=== PATIENT | male | born 1995 | race Caucasian/White ===

== ENCOUNTER 2022-07-28 22:59 | Emergency (ER) | payer OTHER, SELFPAY ==
[2022-07-28 23:02] VITALS: BP 164/100; PULSE 91; RESP 16; TEMP 36.1; O2SAT 100; BMI 29.2
--- NOTE | 2022-07-28 23:48 | ED.WOUNDLAC ---
HPI - Wound/Laceration General Chief Complaint: Laceration/Wound Stated Complaint: Right Pinky Laceration Time Seen by Provider: 07/28/22 23:03 History of Present Illness HPI narrative: 26-year-old young man presenting to the emergency department accompanied by significant other with concern of a laceration to his right 5th finger. Caught on a broken pt glass that had come out of the sanitary wash at a [employer] where he works. Washed intensely right away. Covered up in paper towels. Controlled bleeding. Is having pain but not complaining of tremendous discomfort. Related Data Home Medications Medication Instructions Recorded Confirmed No Known Home Medications 07/28/22 07/28/22 Allergies Allergy/AdvReac Type Severity Reaction Status Date / Time No Known Drug Allergies Allergy Verified 07/28/22 23:06 [facility] Social History Smoking Status: Never smoker How often do you have a drink containing alcohol: 4 or more times a week How many standard drinks containing alcohol do you have on a typical day: 1 or 2 How often do you have six or more drinks on one occasion: Less than monthly AUDIT-C Alcohol total score: 5 Non-prescribed substance use: denies use Exam Narrative: Exam Narrative: Pleasant. Carefully casually groomed. Very polite Does not appear to be in distress. Favoring right hand around which he has wrapped white paper towels around the right 5th finger. Removing these reveals a flap laceration on the palmar surface distally where apex distal total 1.5 cm. Looks to have controlled the bleeding. There does not appear to be glass in this area/the wound. Further evaluation looks to be demonstrating pretty good adherence already. Const: Vital Signs, click to edit/add: Vital Signs - 24 hr 07/28/22 23:02 Temperature 97.0 F L Pulse Rate [Left P ulse Oximeter] 91 Respiratory Rate 16 Blood Pressure [Ri ght Upper Arm] 164/100 H Pulse Oximetry 100 Oxygen Delivery Me thod Room Air Documenting provider has reviewed patient's vital signs: yes Course Vital Signs Vital signs: Initial Vital Signs Temperature 97.0 F L 07/28/22 23:02 Temperature Source Temporal Artery Scan 07/28/22 23:02 Pulse Rate 91 07/28/22 23:02 Respiratory Rate 16 07/28/22 23:02 Blood Pressure 164/100 H 07/28/22 23:02 Blood Pressure Mean 121 07/28/22 23:02 Blood Pressure Position Sitting 07/28/22 23:02 Pulse Oximetry 100 07/28/22 23:02 Oxygen Delivery Method 07/28/22 23:02 Vital Signs Temperature 97.0 F L 07/28/22 23:02 Pulse Rate 91 07/28/22 23:02 Respiratory Rate 16 07/28/22 23:02 Blood Pressure 164/100 H 07/28/22 23:02 Pulse Oximetry 100 07/28/22 23:02 Oxygen Delivery Method 07/28/22 23:02 Temperature 97.0 F L 07/28/22 23:02 Pulse Rate 91 07/28/22 23:02 Respiratory Rate 16 07/28/22 23:02 Blood Pressure 164/100 H 07/28/22 23:02 Pulse Oximetry 100 07/28/22 23:02 Oxygen Delivery Method 07/28/22 23:02 MDM - Wound/Laceration MDM Narrative Medical decision making narrative: Discuss options including suturing, gluing he wonders about and I note still slightly bloody field would not probably not be ideal. Admitting anxiety regarding suturing and so I propose Steri-Strips. Since he has already got good adherence of this wound in think this can be successful. Cleansed with Shur-Clens, applied benzoin and sealed with 2 prescribed 1/8 inch Steri-Strips with excellent wound approximation and control bleeding. Notes himself to be current on tetanus contrary to [facility] Discharge Plan Discharge Clinical Impression: Finger laceration Patient Disposition: Home, Self-Care Condition: Improved Additional Instructions: can trim steri-strip ends as they begin to peel away. try to encourage steri-strips to remain on for 7 days. try not to soak while steri-strips on. antibiotic ointment probably not necessary and will encourage steri-strips to fall off. elevate and ibuprofen for comfort keep covered with dry band-aid for protection. And use finger cotlet if need to work in water. Prescriptions: No Action No Known Home Medications Stand Alone Forms: [employer] Info Instructions
== END 2022-07-29 00:32 | disposition home or self-care (01) ==
PROVIDERS: Emergency Provider Family Medicine
DX: S61.216A Laceration without foreign body of right little finger without damage to nail, initial encounter (principal); W25.XXXA Contact with sharp glass, initial encounter
CPT/HCPCS: 12001; 99283

== ENCOUNTER 2022-12-22 09:56 | Emergency (ER) | payer SELFPAY ==
[2022-12-22] VITALS (19 sets, daily range): BP systolic 151–167; BP diastolic 89–98; PULSE 80–104; RESP 22; TEMP 36.4; O2SAT 94–99; BMI 29.8
[2022-12-22 11:50] LABS: Cannabinoid Screen Urine POSITIVE (Negative); Cocaine Screen Urine POSITIVE (Negative)
[2022-12-22 12:01] LABS: Albumin* 5.1 g/dL (3.3-5.0)
[2022-12-22 12:02] LABS: Chloride* 103 mmol/L (96-114); Potassium* 4.4 mmol/L (3.6-5.1); Sodium* 137 mmol/L (135-149)
[2022-12-22 12:04] LABS: Aspartate Amino Transferase* 62 U/L (12-35); Bilirubin Direct* 0.3 mg/dL (0.0-0.5); Bilirubin Total* 1.2 mg/dL (0.1-1.5); Blood Urea Nitrogen* 9 mg/dL (5-24); Carbon Dioxide* 22 mmol/L (20-32); Creatinine* 0.7 mg/dL (0.5-1.5); Estimated Glomerular Filt Rate 128 ml/min; Total Protein* 8.4 g/dL (6.0-8.3)
[2022-12-22 12:05] LABS: Alanine Aminotransferase* 104 U/L (4-50); Alkaline Phosphatase* 47 U/L (40-150); Calcium* 9.3 mg/dL (8.4-10.6); Glucose* 110 mg/dL (60-115)
--- NOTE | 2022-12-22 12:09 | PC.SOCIAL ---
Resources given for Chemical Dependency Treatment. Patient receptive to getting treatment. Patient will check with his insurance to see what is covered. He will contact social work if he had more questions.
[2022-12-22 12:27] LABS: Basophils Percent Auto 0.3 % (0.0-3.0); Eosinophils Percent Auto 0.3 % (0.0-7.0); Hemoglobin* 16.4 gm/dL (13.5-17.5); Immature Granulocytes Pct Auto 0.3 %; Lymphocytes Percent Auto 16.2 % (20-44); Mean Corpuscular HGB Conc 36 gm/dL (32-36); Mean Corpuscular Hemoglobin 30 pg (26-34); Mean Corpuscular Volume 83 fL (80-100); Monocytes Percent Auto 8.4 % (0.0-11.0); Neutrophils Percent Auto 74.5 % (42.0-72.0); Platelet Count* 252 K/uL (140-440); RDW Coefficient of Variation % 11.8 % (11.5-15.5); Red Blood Count 5.52 m/uL (4.30-5.90); White Blood Count* 11.99 K/uL (4.50-11.00)
[2022-12-22 12:30] LABS: Slide Review Reflex No
[2022-12-22 13:02] LABS: Amphetamine Screen Urine Negative (Negative); Barbiturate Screen Urine Negative (Negative); Benzodiazepines Screen Urine Negative (Negative); Buprenorphine Screen Urine Negative (Negative); Methadone Screen Urine Negative (Negative); Methamphetamines Screen Urine Negative (Negative); Opiate Screen Urine Negative (Negative); Oxycodone Screen Urine Negative (Negative); Phencyclidine Screen Urine Negative (Negative); Tricyclic Antidepressant Urine Negative (Negative)
--- NOTE | 2022-12-22 15:12 | ED_ITS ---
HPI - General Adult General Date Seen: 12/22/22 Chief complaint: Arrhythmia/Palpitations Stated complaint: Elevated heartrate, limbs tingling Time Seen by Provider: 12/22/22 10:17 Source: patient and family Mode of arrival: ambulatory Limitations: no limitations History of Present Illness HPI narrative: Patient is a 27-year-old gentleman who presents here after eat he did cocaine last night, he noted last night and this morning he has had tingling in his hands and his feet, he has wondered if he had a bad batch, he is very remorseful over this, tells me that he was clean for approximately 6 months to year, he presents with his significant other for the this issue. Denies fevers chills, he has maybe some more had some pressure in his chest yesterday when he did the cocaine, but none currently. Denies a cough wheezing shortness of breath, wonders if there may be was something in the cocaine. Never before been in treatment denies any suicidal or homicidal ideation did not take anything else and only other history is of marijuana use. Related Data Home Medications Medication Instructions Recorded Confirmed No Known Home Medications 07/28/22 07/28/22 Allergies Allergy/AdvReac Type Severity Reaction Status Date / Time egg Allergy Verified 12/22/22 10:05 Review of Systems Status of ROS: Reports: 10 or more systems reviewed and unremarkable except as noted in History and below PFSH PFS Social History Smoking Status: Current every day smoker Do you use any of these nicotine containing products: E-Cigarettes and Vaping Products Second hand tobacco smoke exposure: No How often do you have a drink containing alcohol: 4 or more times a week How many standard drinks containing alcohol do you have on a typical day: 5 or 6 How often do you have six or more drinks on one occasion: Less than monthly AUDIT-C Alcohol total score: 7 Non-prescribed substance use: marijuana (any form) and crack/cocaine service: No Exam Narrative: Exam Narrative: Patient is seen in room 6, Patient is speaking normally, problem with no slurring words, oriented x3. Head eyes ears nose and throat exam show equal pupils, no scleral icterus, extraocular muscles are normal, no facial droop, speech is normal, trachea normal and midline. Thyroid normal midline palpable not enlarged. Chest shows symmetrical rise bilaterally, normal auscultation with no wheezes, no increased work of breathing, no overt bruising or lesions seen, no tenderness is noted on auscultation. Heart sounds normal with no S3-S4 no murmurs clicks or gallops. Abdomen shows no obvious masses or hepatosplenomegaly, no organomegaly, bowel sounds are normal in all quadrants. No tenderness is noted also in all quadrants. Upper and lower extremities show normal power, normal range of motion, pulses are normal, sensations normal, fine motor movements are normal, pelvis is stable to rocking. Cervical spine shows normal range of motion, and palpably not tender. Thoracic spine shows normal range of motion, and palpably not tender, lumbar spine shows no tenderness to palpation percussion and is otherwise normal range of motion. Skin shows no rashes, petechiae or eccymosis. Const: Vital Signs, click to edit/add: Vital Signs - 24 hr 12/22/22 10:06 12/22/22 10:11 12/22/22 10:15 Temperature 97.6 F Pulse Rate 104 H 91 Pulse Rate [Pulse Oximeter] 98 Respiratory Rate 22 Blood Pressure Blood Pressure [Le ft Upper Arm] 167/92 H Pulse Oximetry 99 98 98 Oxygen Delivery Me thod Room Air 12/22/22 10:30 12/22/22 10:32 12/22/22 10:45 Temperature Pulse Rate 97 96 98 Pulse Rate [Pulse Oximeter] Respiratory Rate Blood Pressure 151/98 H Blood Pressure [Le ft Upper Arm] Pulse Oximetry 94 97 98 Oxygen Delivery Me thod 12/22/22 11:09 12/22/22 11:15 12/22/22 11:30 Temperature Pulse Rate 89 101 H 86 Pulse Rate [Pulse Oximeter] Respiratory Rate Blood Pressure Blood Pressure [Le ft Upper Arm] Pulse Oximetry 95 97 98 Oxygen Delivery Me thod 12/22/22 11:32 12/22/22 11:45 12/22/22 12:00 Temperature Pulse Rate 94 100 93 Pulse Rate [Pulse Oximeter] Respiratory Rate Blood Pressure 159/94 H Blood Pressure [Le ft Upper Arm] Pulse Oximetry 97 96 96 Oxygen Delivery Me thod 12/22/22 12:02 12/22/22 12:15 12/22/22 12:30 Temperature Pulse Rate 88 90 85 Pulse Rate [Pulse Oximeter] Respiratory Rate Blood Pressure 155/93 H Blood Pressure [Le ft Upper Arm] Pulse Oximetry 97 96 96 Oxygen Delivery Me thod 12/22/22 12:32 12/22/22 12:45 12/22/22 13:00 Temperature Pulse Rate 88 85 80 Pulse Rate [Pulse Oximeter] Respiratory Rate Blood Pressure 151/89 H Blood Pressure [Le ft Upper Arm] Pulse Oximetry 97 94 96 Oxygen Delivery Me thod 12/22/22 13:02 Temperature Pulse Rate 82 Pulse Rate [Pulse Oximeter] Respiratory Rate Blood Pressure 152/92 H Blood Pressure [Le ft Upper Arm] Pulse Oximetry 96 Oxygen Delivery Me thod Course Course Hospital Course: Reviewed with the patient that his EKG, his troponin, D-dimer and laboratory work were normal, with exception that his urine was positive for cocaine and marijuana, I had social media project manager see him about methods in place is seeking access to get help with his issues with the cocaine. He felt like he was back to baseline, and would like to be discharged I am not against this at this point. Vital Signs Vital signs: Initial Vital Signs Temperature 97.6 F 12/22/22 10:06 Temperature Source Temporal Artery Scan 12/22/22 10:06 Pulse Rate 98 12/22/22 10:06 Pulse Rhythm 12/22/22 10:06 Respiratory Rate 22 12/22/22 10:06 Blood Pressure 167/92 H 12/22/22 10:06 Blood Pressure Mean 117 12/22/22 10:06 Blood Pressure Position Supine 12/22/22 10:06 Pulse Oximetry 99 12/22/22 10:06 Oxygen Delivery Method 12/22/22 10:06 Vital Signs Temperature 97.6 F 12/22/22 10:06 Pulse Rate 98 12/22/22 10:06 Respiratory Rate 22 12/22/22 10:06 Blood Pressure 167/92 H 12/22/22 10:06 Pulse Oximetry 99 12/22/22 10:06 Oxygen Delivery Method 12/22/22 10:06 Temperature 97.6 F 12/22/22 10:06 Pulse Rate 82 12/22/22 13:02 Respiratory Rate 22 12/22/22 10:06 Blood Pressure 152/92 H 12/22/22 13:02 Pulse Oximetry 96 12/22/22 13:02 Oxygen Delivery Method 12/22/22 10:06 Medical Decision Making MDM Narrative Medical decision making narrative: During the evaluation of this patient I considered multiple differential diagnosis is. The life-threatening differential diagnosis include coronary disease/OH, pulmonary embolism, pneumothorax, pneumonia, and aortic dissection. Other differential diagnosis included but were not limited to pericarditis, myocarditis, chest wall pain, GERD, esophageal rupture, rib fracture contusion, pleurisy, as well as other etiologies. Lab Data Lab results reviewed: Yes I reviewed the patient's lab results Labs: Lab Results 12/22/22 12/22/22 12/22/22 Range/Units 10:41 10:42 11:09 WBC 11.99 H (4.50-11.00) K/uL RBC 5.52 (4.30-5.90) m/uL Hgb 16.4 (13.5-17.5) gm/dL Hct 46.0 (37.0-53.0) % MCV 83 (80-100) fL MCH 30 (26-34) pg MCHC 36 (32-36) gm/dL RDW Coeff of Miguel A 11.8 (11.5-15.5) % Plt Count 252 (140-440) K/uL Neut % (Auto) 74.5 H (42.0-72.0) % Lymph % (Auto) 16.2 L (20-44) % Pepin % (Auto) 8.4 (0.0-11.0) % Eos % (Auto) 0.3 (0.0-7.0) % Baso % (Auto) 0.3 (0.0-3.0) % Neut # (Auto) 8.90 H (1.7-7.0) K/uL Lymph # (Auto) 1.90 (0.90-2.90) K/uL Pepin # (Auto) 1.00 H (0.00-0.90) K/UL Eos # (Auto) 0.00 (0.00-0.50) K/uL Baso # (Auto) 0.00 (0.00-0.30) K/uL D-Dimer Quant (PE/DVT) 0.30 (0.00-0.50) ug/ml Sodium (135-149) mmol/L Potassium (3.6-5.1) mmol/L Chloride (96-114) mmol/L Carbon Dioxide (20-32) mmol/L BUN (5-24) mg/dL Creatinine (0.5-1.5) mg/dL Estimated Creat Clear Estimated GFR ml/min Glucose (60-115) mg/dL Calcium (8.4-10.6) mg/dL Total Bilirubin (0.1-1.5) mg/dL Direct Bilirubin (0.0-0.5) mg/dL AST (12-35) U/L ALT (4-50) U/L Alkaline Phosphatase (40-150) U/L Total Protein (6.0-8.3) g/dL Albumin (3.3-5.0) g/dL Urine Opiates Screen (Negative) Ur Buprenorphine Scrn (Negative) Ur Oxycodone Screen (Negative) Urine Methadone Screen (Negative) Ur Propoxyphene Screen (Negative) Ur Barbiturates Screen (Negative) U Tricyclic Antidepress (Negative) Ur Phencyclidine Scrn (Negative) Ur Amphetamines Screen (Negative) U Methamphetamines Scrn (Negative) U Benzodiazepines Scrn (Negative) Urine Cocaine Screen (Negative) U Marijuana (THC) Screen (Negative) Ur Drug Screen Comment POC Troponin I 0.00 L (0.01-0.04) ng/ml 12/22/22 12/22/22 Range/Units 11:09 11:09 WBC (4.50-11.00) K/uL RBC (4.30-5.90) m/uL Hgb (13.5-17.5) gm/dL Hct (37.0-53.0) % MCV (80-100) fL MCH (26-34) pg MCHC (32-36) gm/dL RDW Coeff of Miguel A (11.5-15.5) % Plt Count (140-440) K/uL Neut % (Auto) (42.0-72.0) % Lymph % (Auto) (20-44) % Pepin % (Auto) (0.0-11.0) % Eos % (Auto) (0.0-7.0) % Baso % (Auto) (0.0-3.0) % Neut # (Auto) (1.7-7.0) K/uL Lymph # (Auto) (0.90-2.90) K/uL Pepin # (Auto) (0.00-0.90) K/UL Eos # (Auto) (0.00-0.50) K/uL Baso # (Auto) (0.00-0.30) K/uL D-Dimer Quant (PE/DVT) (0.00-0.50) ug/ml Sodium 137 (135-149) mmol/L Potassium 4.4 (3.6-5.1) mmol/L Chloride 103 (96-114) mmol/L Carbon Dioxide 22 (20-32) mmol/L BUN 9 (5-24) mg/dL Creatinine 0.7 (0.5-1.5) mg/dL Estimated Creat Clear 170.90 Estimated GFR 128 ml/min Glucose 110 (60-115) mg/dL Calcium 9.3 (8.4-10.6) mg/dL Total Bilirubin 1.2 (0.1-1.5) mg/dL Direct Bilirubin 0.3 (0.0-0.5) mg/dL AST 62 H (12-35) U/L ALT 104 H (4-50) U/L Alkaline Phosphatase 47 (40-150) U/L Total Protein 8.4 H (6.0-8.3) g/dL Albumin 5.1 H (3.3-5.0) g/dL Urine Opiates Screen Negative (Negative) Ur Buprenorphine Scrn Negative (Negative) Ur Oxycodone Screen Negative (Negative) Urine Methadone Screen Negative (Negative) Ur Propoxyphene Screen Negative (Negative) Ur Barbiturates Screen Negative (Negative) U Tricyclic Antidepress Negative (Negative) Ur Phencyclidine Scrn Negative (Negative) Ur Amphetamines Screen Negative (Negative) U Methamphetamines Scrn Negative (Negative) U Benzodiazepines Scrn Negative (Negative) Urine Cocaine Screen POSITIVE A* (Negative) U Marijuana (THC) Screen POSITIVE A* (Negative) Ur Drug Screen Comment See Note POC Troponin I (0.01-0.04) ng/ml Imaging Data Chest x-ray: My impression: Negative chest x-ray ECG Data Interpretation: EKG shows normal sinus rhythm, there is some ST wave flattening inferiorly and laterally, but no acute ST wave changes are noted. Rhythm is sinus. Discharge Plan Discharge Clinical Impression: Cocaine use, Palpitations, Anxiety Patient Disposition: Home w/ Parent or Adult Condition: Stable Instructions: Cocaine Abuse (ED), Anxiety (ED) Additional Instructions: Home rest avoidance of cocaine use, consider some of the help with it we sugge sted for you with social Work, follow-up if ongoing signs and symptoms, you may work tonight. I put a referral in for follow-up doctor. Prescriptions: No Action No Known Home Medications Follow Up/Referrals: Provider,Not a Local [Primary Care Provider] - Son Montilla MD [Staff Physician] - Stand Alone Forms: [employer] Info Instructions
== END 2022-12-22 13:09 | disposition home or self-care (01) ==
PROVIDERS: Emergency Provider Family Medicine
DX: F14.10 Cocaine abuse, uncomplicated (principal); F41.9 Anxiety disorder, unspecified; R00.2 Palpitations
CPT/HCPCS: 36415; 80048; 80076; 80306; 84484; 85025; 85379; 93005; 99284